=== PATIENT | female | born 1965 | race Caucasian/White ===

== ENCOUNTER 2023-12-30 11:04 | Outpatient (CLI) | payer OTHER, SELFPAY ==
[2023-12-30 18:37] LABS: Basophils % 0.5 % (0.1-2.0); Hematocrit 47.1 % (37.0-47.0); Lymphocytes # 2.1 K/mm3 (0.7-4.5); Lymphocytes % 26.5 % (10-50); Mean Corpuscular HGB Conc 31.9 g/dL (31.8-35.4); Mean Corpuscular Hemoglobin 31.9 pg (27.0-31.2); Mean Corpuscular Volume 99.8 fl (81-99); Mean Platelet Volume 9.1 fl (7.4-10.4); Monocytes # 0.5 K/mm3 (0.1-1.0); Monocytes % 5.9 % (1.7-9.3); Neutrophils # 5.3 K/mm3 (1.8-7.8); Neutrophils % 67.1 % (37.0-80.0); Platelet Count 423 K/mm3 (142-424); Red Blood Count 4.72 M/mm3 (4.20-5.40); Red Cell Distribution Width 14.2 % (11.5-17.5)
[2023-12-30 18:52] LABS: Microalbumin/Creatinine Ratio 21.9
[2023-12-30 18:56] LABS: Alanine Aminotransferase 24 U/L (12-78); Albumin Level 4.5 g/dl (3.5-5.0); Albumin/Globulin Ratio 1.4 (1.1-1.8); Alkaline Phosphatase 122 U/L (38-126); Anion Gap 9.6 mEq/L (5-15); Aspartate Amino Transferase 26 U/L (14-36); Bilirubin,Total 0.6 mg/dl (0.2-1.3); Blood Urea Nitrogen 16 mg/dl (7-17); Carbon Dioxide 19 mmol/L (22.0-30.0); Chloride 116 mmol/L (98-107); Chol/HDL Ratio 5.1 (1-3.5); Cholesterol 242 mg/dl (140-200); Estimated Glomerular Filt Rate 74 ml/min (>60); GFR (African American) 89 ML/MIN (>60); Globulin 3.2 g/dL (1.3-3.2); Glucose 139 mg/dl (74-100); HDL Cholesterol 47 mg/dl (40-60); Potassium 3.6 mmoL/L (3.5-5.1); Sodium 141 mmol/L (136-145); Total Protein,Serum 7.7 g/dl (6.3-8.2); Triglycerides 232 mg/dl (30-150); VLDL Cholesterol 46 mg/dL (0-40)
[2023-12-30 19:07] LABS: Direct LDL Cholesterol 151.96 mg/dL (100-129)
[2023-12-30 19:16] LABS: Creatinine,Urine Random 221 mg/dL (Not Estab.)
[2023-12-30 19:22] LABS: 25-OH Vitamin D, Total 15.9 ng/mL (30-100)
[2023-12-30 19:26] LABS: Thyroid Stimulating Hormone 1.48 uIU/mL (0.465-4.68)
[2023-12-30 20:28] LABS: Hemoglobin A1C 5.8 % (4.0-6.0)
[2023-12-30 21:40] LABS: Vitamin B12 > 1000 pg/mL (239-931)
== END 2023-12-30 23:59 | disposition home or self-care (01) ==
LOC: LAB.DROPOF 12-31 11:04
PROVIDERS: PCP Nurse Practitioner; Visit Provider Nurse Practitioner
DX: I10 Essential (primary) hypertension (principal); Z13.1 Encounter for screening for diabetes mellitus; Z13.220 Encounter for screening for lipoid disorders; Z72.0 Tobacco use
CPT/HCPCS: 80050; 80053; 80061; 82043; 82306; 82570; 82607; 83036; 84443; 85025

== ENCOUNTER 2024-05-03 10:58 | Outpatient (CLI) | payer OTHER, SELFPAY ==
[2024-05-03 19:15] LABS: Albumin Level 4.6 g/dl (3.5-5.0); Chloride 110 mmol/L (98-107); Potassium 4.2 mmoL/L (3.5-5.1); Sodium 139 mmol/L (136-145)
[2024-05-03 19:17] LABS: Alanine Aminotransferase 42 U/L (12-78); Aspartate Amino Transferase 31 U/L (14-36); Blood Urea Nitrogen 20 mg/dl (7-17); Estimated Glomerular Filt Rate 86 ml/min (>60); GFR (African American) 104 ML/MIN (>60)
[2024-05-03 19:18] LABS: Albumin/Globulin Ratio 1.6 (1.1-1.8); Alkaline Phosphatase 150 U/L (38-126); Anion Gap 14.2 mEq/L (5-15); Bilirubin,Total 0.2 mg/dl (0.2-1.3); Calcium 9.7 mg/dl (8.4-10.2); Carbon Dioxide 19 mmol/L (22.0-30.0); Chol/HDL Ratio 4.1 (1-3.5); Cholesterol 234 mg/dl (140-200); Globulin 2.8 g/dL (1.3-3.2); Glucose 112 mg/dl (74-100); HDL Cholesterol 57 mg/dl (40-60); Total Protein,Serum 7.4 g/dl (6.3-8.2); Triglycerides 218 mg/dl (30-150); VLDL Cholesterol 44 mg/dL (0-40)
[2024-05-03 19:45] LABS: Microalbumin/Creatinine Ratio 59.7
[2024-05-03 19:50] LABS: Creatinine,Urine Random 84 mg/dL (Not Estab.)
[2024-05-03 23:47] LABS: Hemoglobin A1C 5.7 % (4.0-6.0)
[2024-05-04 00:21] LABS: 25-OH Vitamin D, Total < 12.8 ng/mL (30-100)
== END 2024-05-03 23:59 | disposition home or self-care (01) ==
LOC: LAB.DROPOF 05-04 12:04
PROVIDERS: PCP Nurse Practitioner; Visit Provider Nurse Practitioner
DX: I10 Essential (primary) hypertension (principal); E78.5 Hyperlipidemia, unspecified; E55.9 Vitamin D deficiency, unspecified; G47.9 Sleep disorder, unspecified
CPT/HCPCS: 80053; 80061; 82043; 82306; 82570; 83036